=== PATIENT | female | born 1950 | race Caucasian/White ===

== ENCOUNTER 2021-11-20 11:31 | Emergency (ER) | payer BC ==
[~2021-11-20] VITALS: Ht 157.5 cm; Wt 103.4 kg
[2021-11-20 11:50] VITALS: BP_SYST 127
--- NOTE | 2021-11-20 11:55 | NUR ---
PT TO ROOM 4 TRIAGE COMPLETE, FELL OUT OF BED THIS AM AND LACK TO BACK OF HEAD DENIES KO PT STTES NOT ON BLOOD THINNERS
[2021-11-20] MEDS ORDERED: LIDOCAINE/EPI 1% 1:100000 20 ML VIAL INJ ONE (12:15)
[2021-11-20] MEDS ORDERED: DIPH-TET-PERTUS Vaccine 0.5 ML VIAL (ADACEL) I.M. ONE (13:30)
--- NOTE | 2021-11-20 13:47 | NUR ---
TWO GEENA WERE PLACED BY MD CAROLA CHOUDHARY
[2021-11-20 13:48] VITALS: BP_SYST 122
--- NOTE | 2021-11-20 13:49 | NUR ---
Patient given written and verbal discharge instructions and verbalizes understanding. HELEN BEJARANO MD discussed with patient the results and treatment provided. Patient in stable condition. ID arm band removed. Patient educated on pain management and to follow up with PMD. Pain Scale 0. Opportunity for questions provided and answered. Medication side effect fact sheet provided.
== END 2021-11-20 13:49 | disposition home or self-care (01) ==
LOC: SED 11:31
DX: S01.01XA Laceration without foreign body of scalp, initial encounter (principal); E11.9 Type 2 diabetes mellitus without complications; J45.909 Unspecified asthma, uncomplicated; Z91.040 Latex allergy status; Z88.0 Allergy status to penicillin; W06.XXXA Fall from bed, initial encounter; Y93.89 Activity, other specified; Y92.89 Other specified places as the place of occurrence of the external cause; Y99.8 Other external cause status
CPT/HCPCS: 70450-TC; 76376; 90715; 99284

== ENCOUNTER 2021-11-27 16:48 | Emergency (ER) | payer BC ==
[~2021-11-27] VITALS: Ht 157.5 cm; Wt 103.4 kg
[2021-11-27 16:56] VITALS: BP_SYST 104
--- NOTE | 2021-11-27 17:00 | NUR ---
RECEIVED PT IN BED H1 FOR CC OF NEEDING GEENA REMOVED FROM HEAD. PT HAD PLACED 7 DAYS AGO. PT IS STABLE, NAD, VSS, AAOx3, NO PAIN, TO BE EVALUATION BY ED MD AND GEENA REMOVED
--- NOTE | 2021-11-27 17:10 | NUR ---
Dr. Gunter at bedside examining pt.
[2021-11-27 17:28] VITALS: BP_SYST 132
--- NOTE | 2021-11-27 17:30 | NUR ---
Patient given written and verbal discharge instructions and verbalizes understanding. ER MD discussed with patient the results and treatment provided. Patient in stable condition. ID arm band removed. Patient educated on pain management and to follow up with PMD. Pain Scale . Opportunity for questions provided and answered. Medication side effect fact sheet provided.
== END 2021-11-27 17:30 | disposition home or self-care (01) ==
LOC: SED 16:48
DX: S01.01XD Laceration without foreign body of scalp, subsequent encounter (principal); Z48.02 Encounter for removal of sutures; W06.XXXD Fall from bed, subsequent encounter
CPT/HCPCS: 99281